=== PATIENT | male | born 1950 | race Caucasian/White ===

== ENCOUNTER 2017-11-21 15:23 | Inpatient (IN) | payer OTHER ==
[~2017-11-21] VITALS: Ht 175.3 cm; Wt 71.8 kg
[2017-11-21] MEDS ORDERED: ROCPM1 IV (18:18)
[2017-11-21] MEDS ORDERED: LACT10SO66 PO (18:18)
[2017-11-21] MEDS ORDERED: ASCO500T20 PO (18:18)
[2017-11-21] MEDS ORDERED: HYDR2TAB34 PO (18:18)
[2017-11-21] MEDS ORDERED: LOVI80 SQ (18:18)
[2017-11-21] MEDS ORDERED: NEPH PO (18:18)
[2017-11-21] MEDS ORDERED: RIVA20TA PO (18:18)
[2017-11-21] MEDS ORDERED: [UNRECOGNIZED DRUG - CODE] PO (18:18)
[2017-11-21] MEDS ORDERED: LIP40 PO (18:18)
[2017-11-21] MEDS ORDERED: ZOLP5TAB2 PO (18:18)
[2017-11-21] MEDS ORDERED: TIZA4TAB11 PO (18:18)
[2017-11-21] MEDS ORDERED: FENO48TA2 PO (18:18)
[2017-11-21] MEDS ORDERED: MIDO5TAB20 PO (18:18)
[2017-11-21 18:30] VITALS: BP_SYST 117
[2017-11-21] MEDS ORDERED: *HEPARIN PER PHARMACY XX ONE (19:00)
[2017-11-21] MEDS ORDERED: ZOLPIDEM TARTRATE 5 MG TABLET PO PRN (19:15)
[2017-11-21] MEDS ORDERED: tiZANidine HCL 4 MG TABLET PO PRN (19:15)
[2017-11-21 19:24] VITALS: BP_SYST 117
[2017-11-21 20:10] LABS: INR 1.4 (0.80-1.20); PROTHROMBIN TIME 14.8 SECS (9.5-12.5)
[2017-11-21] MEDS ORDERED: HEPARIN SODIUM,PORCINE 3000 UNITS/0.6 ML BOLUS IVP PRN (20:15)
[2017-11-21] MEDS ORDERED: HEPARIN SODIUM,PORCINE 2000 UNITS/0.4 ML BOLUS IVP PRN (20:15)
[2017-11-21] MEDS: MIDODRINE HCL 5 MG TABLET (PROAMATINE) PO SCH (21:51)
[2017-11-21] MEDS: NORMAL SALINE 5 ML DISP.SYRIN IVF SCH (21:51)
[2017-11-21] MEDS: HEPARIN 25,000 UNITS in 250 ML PREMIX IV PRN (21:53)
[2017-11-21] MEDS: HYDROmorphone 2 MG TAB PO PRN (22:42)
[2017-11-22 00:30] VITALS: BP_SYST 131
[2017-11-22 04:35] LABS: CALCIUM 8.7 mg/dL (8.4-11.0); CREATININE 2.63 mg/dL (0.55-1.30); POTASSIUM 3.4 mmol/L (3.5-5.1)
[2017-11-22 04:37] LABS: BASOPHILS # (AUTO) 0.1 K/uL (0.0-0.2); BASOPHILS % (AUTO) 1.7 % (0.0-2.0); EOSINOPHILS # (AUTO) 0.4 K/uL (0.0-0.4); EOSINOPHILS % (AUTO) 6.4 % (0.0-4.0); HEMOGLOBIN 10.7 g/dL (14.0-18.0); LYMPHOCYTES # (AUTO) 1.8 K/uL (1.0-5.5); LYMPHOCYTES % (AUTO) 28.5 % (20.5-51.5); MEAN CORPUSCULAR HEMOGLOBIN 30 pg (27-31); MEAN CORPUSCULAR HGB CONC 32 % (32-36); MEAN CORPUSCULAR VOLUME 94 fL (79.0-98.0); MONOCYTES # (AUTO) 0.5 K/uL (0.0-1.0); MONOCYTES % (AUTO) 8.5 % (1.7-9.3); NEUTROPHILS # (AUTO) 3.4 K/uL (1.8-7.7); NEUTROPHILS % (AUTO) 54.9 % (40.0-70.0); PLATELET COUNT (AUTO) 257 K/uL (130-430); RED BLOOD CELL COUNT(AUTO) 3.53 MIL/uL (4.2-6.2); RED CELL DISTRIBUTION WIDTH 15.4 % (9.0-15.0); WHITE BLOOD COUNT (AUTO) 6.2 K/uL (4.8-10.8)
[2017-11-22] MEDS: MIDODRINE HCL 5 MG TABLET (PROAMATINE) PO SCH ×3 (06:45→22:03)
[2017-11-22] MEDS: NORMAL SALINE 5 ML DISP.SYRIN IVF SCH ×3 (06:45→22:15)
[2017-11-22] MEDS: HEPARIN 25,000 UNITS in 250 ML PREMIX IV PRN ×4 (08:04→22:29)
[2017-11-22] MEDS: NEPHROVITE, (FOLIC ACID/VITAMIN B COMP W-C 1 TAB) PO SCH (08:24)
[2017-11-22] MEDS: ATORVASTATIN 20 MG TABLET PO SCH (08:24)
[2017-11-22] MEDS: FENOFIBRATE NANOCRYSTALLIZED 48 MG TABLET (TRICOR) PO SCH (08:25)
[2017-11-22] MEDS: ASCORBIC ACID 500 MG TABLET PO SCH (08:26)
[2017-11-22] MEDS: ONDANSETRON HCL 4 MG/2 ML VIAL IVP PRN ×2 (08:38→17:34)
[2017-11-22 08:48] VITALS: BP_SYST 135
[2017-11-22] MEDS: LANTHANUM CARBONATE 750 MG PO SCH (09:00)
[2017-11-22] MEDS: LACTULOSE 20 GM/30 ML UDC PO SCH (09:33)
[2017-11-22] MEDS: HYDROmorphone 2 MG TAB PO PRN ×2 (09:33→18:13)
[2017-11-22] MEDS ORDERED: ONDANSETRON HCL 4 MG/2 ML VIAL IVP PRN (11:30)
[2017-11-22] MEDS ORDERED: ACETAMINOPHEN 325 MG TABLET PO PRN (11:30)
[2017-11-22] MEDS ORDERED: MAGNESIUM SULFATE 50 ML IV PRN (11:30)
[2017-11-22] MEDS ORDERED: LORazepam 2 MG/ML VIAL IVP PRN (11:30)
[2017-11-22] MEDS ORDERED: DOCUSATE SODIUM 100 MG CAPSULE PO PRN (11:30)
[2017-11-22 13:16] VITALS: BP_SYST 116
[2017-11-22 16:48] VITALS: BP_SYST 111
[2017-11-22 20:32] VITALS: BP_SYST 123
[2017-11-22] MEDS: ZOLPIDEM TARTRATE 5 MG TABLET PO PRN (22:04)
[2017-11-22] MEDS: POTASSIUM CHLORIDE 20 MEQ TAB.PRT.SR PO PRN (22:05)
[2017-11-22] MEDS: MUPIROCIN 2% TOPICAL OINTMENT 22 GM NS PRN (22:14)
[2017-11-22 23:11] VITALS: BP_SYST 130
[2017-11-23] MEDS: MIDODRINE HCL 5 MG TABLET (PROAMATINE) PO SCH ×3 (05:13→22:22)
[2017-11-23] MEDS: NORMAL SALINE 5 ML DISP.SYRIN IVF SCH ×3 (05:15→22:33)
[2017-11-23 07:06] LABS: ALBUMIN 2.7 g/dL (3.4-4.8); CALCIUM 9.1 mg/dL (8.4-11.0); CREATININE 3.21 mg/dL (0.55-1.30); POTASSIUM 3.8 mmol/L (3.5-5.1); TOTAL BILIRUBIN 0.4 mg/dL (0.0-1.0)
[2017-11-23 07:12] LABS: BASOPHILS # (AUTO) 0.1 K/uL (0.0-0.2); BASOPHILS % (AUTO) 1.3 % (0.0-2.0); EOSINOPHILS # (AUTO) 0.5 K/uL (0.0-0.4); EOSINOPHILS % (AUTO) 6.4 % (0.0-4.0); HEMATOCRIT 32.5 % (36-54); HEMOGLOBIN 10.4 g/dL (14.0-18.0); LYMPHOCYTES # (AUTO) 1.5 K/uL (1.0-5.5); LYMPHOCYTES % (AUTO) 21.4 % (20.5-51.5); MEAN CORPUSCULAR HEMOGLOBIN 30 pg (27-31); MEAN CORPUSCULAR HGB CONC 32 % (32-36); MEAN CORPUSCULAR VOLUME 94 fL (79.0-98.0); MONOCYTES # (AUTO) 0.5 K/uL (0.0-1.0); MONOCYTES % (AUTO) 6.5 % (1.7-9.3); NEUTROPHILS # (AUTO) 4.5 K/uL (1.8-7.7); NEUTROPHILS % (AUTO) 64.4 % (40.0-70.0); PLATELET COUNT (AUTO) 290 K/uL (130-430); RED BLOOD CELL COUNT(AUTO) 3.46 MIL/uL (4.2-6.2); RED CELL DISTRIBUTION WIDTH 15.7 % (9.0-15.0); WHITE BLOOD COUNT (AUTO) 7.1 K/uL (4.8-10.8)
[2017-11-23 08:40] VITALS: BP_SYST 123
[2017-11-23] MEDS: FENOFIBRATE NANOCRYSTALLIZED 48 MG TABLET (TRICOR) PO SCH (08:56)
[2017-11-23] MEDS: ATORVASTATIN 20 MG TABLET PO SCH (08:56)
[2017-11-23] MEDS: NEPHROVITE, (FOLIC ACID/VITAMIN B COMP W-C 1 TAB) PO SCH (08:56)
[2017-11-23] MEDS: ASCORBIC ACID 500 MG TABLET PO SCH (08:56)
[2017-11-23] MEDS: LANTHANUM CARBONATE 750 MG PO SCH (08:56)
[2017-11-23] MEDS: LACTULOSE 20 GM/30 ML UDC PO SCH (08:56)
[2017-11-23] MEDS: HYDROmorphone 2 MG TAB PO PRN ×2 (09:18→22:28)
[2017-11-23] MEDS: ONDANSETRON HCL 4 MG/2 ML VIAL IVP PRN (09:19)
[2017-11-23] MEDS: HEPARIN 25,000 UNITS in 250 ML PREMIX IV PRN ×2 (10:06→17:38)
[2017-11-23 10:37] LABS: INR 1.5 (0.80-1.20); PROTHROMBIN TIME 15.6 SECS (9.5-12.5)
[2017-11-23 12:20] VITALS: BP_SYST 115
[2017-11-23] MEDS ORDERED: COMMUNICATION ORDER XX ONE (14:30)
[2017-11-23] MEDS ORDERED: HEPARIN SODIUM, PORCINE 10,000 UNITS/ 10 ML VIAL MC ONE (14:45)
[2017-11-23] MEDS: PROMETHAZINE HCL 25 MG TABLET PO PRN (14:55)
[2017-11-23 16:45] VITALS: BP_SYST 119
[2017-11-23] MEDS ORDERED: WARFARIN SODIUM 7.5 MG TABLET PO SCH (18:00)
[2017-11-23 20:00] VITALS: BP_SYST 111
[2017-11-24 00:38] VITALS: BP_SYST 111
[2017-11-24] MEDS: MIDODRINE HCL 5 MG TABLET (PROAMATINE) PO SCH ×3 (05:38→21:55)
[2017-11-24] MEDS: NORMAL SALINE 5 ML DISP.SYRIN IVF SCH ×3 (05:38→21:56)
[2017-11-24] MEDS: MUPIROCIN 2% TOPICAL OINTMENT 22 GM NS PRN (05:41)
[2017-11-24 05:52] LABS: BASOPHILS # (AUTO) 0.2 K/uL (0.0-0.2); BASOPHILS % (AUTO) 3.5 % (0.0-2.0); EOSINOPHILS # (AUTO) 0.4 K/uL (0.0-0.4); EOSINOPHILS % (AUTO) 6.2 % (0.0-4.0); HEMATOCRIT 33.8 % (36-54); HEMOGLOBIN 11.1 g/dL (14.0-18.0); LYMPHOCYTES # (AUTO) 2.2 K/uL (1.0-5.5); LYMPHOCYTES % (AUTO) 31.7 % (20.5-51.5); MEAN CORPUSCULAR HEMOGLOBIN 31 pg (27-31); MEAN CORPUSCULAR HGB CONC 33 % (32-36); MEAN CORPUSCULAR VOLUME 94 fL (79.0-98.0); MONOCYTES # (AUTO) 0.6 K/uL (0.0-1.0); MONOCYTES % (AUTO) 8.3 % (1.7-9.3); NEUTROPHILS # (AUTO) 3.6 K/uL (1.8-7.7); NEUTROPHILS % (AUTO) 50.3 % (40.0-70.0); PLATELET COUNT (AUTO) 281 K/uL (130-430); RED CELL DISTRIBUTION WIDTH 15.7 % (9.0-15.0)
[2017-11-24 06:26] LABS: CALCIUM 9.3 mg/dL (8.4-11.0); CREATININE 2.72 mg/dL (0.55-1.30); POTASSIUM 3.4 mmol/L (3.5-5.1)
[2017-11-24 06:37] LABS: INR 1.9 (0.80-1.20); PROTHROMBIN TIME 19.9 SECS (9.5-12.5)
[2017-11-24] MEDS: HYDROmorphone 2 MG TAB PO PRN ×3 (07:06→19:57)
[2017-11-24] MEDS: HEPARIN 25,000 UNITS in 250 ML PREMIX IV PRN ×2 (07:08→08:22)
[2017-11-24] MEDS: LACTULOSE 20 GM/30 ML UDC PO SCH (08:12)
[2017-11-24] MEDS: ATORVASTATIN 20 MG TABLET PO SCH (08:12)
[2017-11-24] MEDS: POTASSIUM CHLORIDE 20 MEQ TAB.PRT.SR PO PRN (08:13)
[2017-11-24] MEDS: NEPHROVITE, (FOLIC ACID/VITAMIN B COMP W-C 1 TAB) PO SCH (08:14)
[2017-11-24] MEDS: FENOFIBRATE NANOCRYSTALLIZED 48 MG TABLET (TRICOR) PO SCH (08:14)
[2017-11-24] MEDS: ASCORBIC ACID 500 MG TABLET PO SCH (08:14)
[2017-11-24] MEDS: LANTHANUM CARBONATE 750 MG PO SCH (08:14)
[2017-11-24] MEDS: PROMETHAZINE HCL 25 MG TABLET PO PRN (08:32)
[2017-11-24 08:39] VITALS: BP_SYST 96
[2017-11-24 12:29] VITALS: BP_SYST 92
[2017-11-24 16:05] VITALS: BP_SYST 111
[2017-11-24] MEDS ORDERED: WARFARIN SODIUM 4 MG TABLET PO SCH (18:00)
[2017-11-24 20:00] VITALS: BP_SYST 101
[2017-11-24] MEDS: ZOLPIDEM TARTRATE 5 MG TABLET PO PRN (21:55)
[2017-11-25] VITALS: BP_SYST 108
[2017-11-25] MEDS: MIDODRINE HCL 5 MG TABLET (PROAMATINE) PO SCH ×3 (05:11→21:54)
[2017-11-25] MEDS: NORMAL SALINE 5 ML DISP.SYRIN IVF SCH ×3 (05:12→21:54)
[2017-11-25 06:54] LABS: CALCIUM 9.1 mg/dL (8.4-11.0); CREATININE 3.5 mg/dL (0.55-1.30)
[2017-11-25 07:22] LABS: PROTHROMBIN TIME 47.7 SECS (9.5-12.5)
[2017-11-25 07:23] LABS: INR 4.6 (0.80-1.20)
[2017-11-25] MEDS: LACTULOSE 20 GM/30 ML UDC PO SCH (09:00)
[2017-11-25 09:16] VITALS: BP_SYST 118
[2017-11-25] MEDS: ATORVASTATIN 20 MG TABLET PO SCH (09:20)
[2017-11-25] MEDS: ASCORBIC ACID 500 MG TABLET PO SCH (09:20)
[2017-11-25] MEDS: NEPHROVITE, (FOLIC ACID/VITAMIN B COMP W-C 1 TAB) PO SCH (09:20)
[2017-11-25] MEDS: FENOFIBRATE NANOCRYSTALLIZED 48 MG TABLET (TRICOR) PO SCH (09:21)
[2017-11-25] MEDS: PROMETHAZINE HCL 25 MG TABLET PO PRN (09:27)
[2017-11-25 10:25] LABS: BASOPHILS # (AUTO) 0.1 K/uL (0.0-0.2); BASOPHILS % (AUTO) 1.6 % (0.0-2.0); EOSINOPHILS # (AUTO) 0.3 K/uL (0.0-0.4); EOSINOPHILS % (AUTO) 4.5 % (0.0-4.0); HEMATOCRIT 35.9 % (36-54); HEMOGLOBIN 11.4 g/dL (14.0-18.0); LYMPHOCYTES # (AUTO) 1.7 K/uL (1.0-5.5); LYMPHOCYTES % (AUTO) 25.5 % (20.5-51.5); MEAN CORPUSCULAR HEMOGLOBIN 30 pg (27-31); MEAN CORPUSCULAR HGB CONC 32 % (32-36); MEAN CORPUSCULAR VOLUME 94 fL (79.0-98.0); MONOCYTES # (AUTO) 0.6 K/uL (0.0-1.0); MONOCYTES % (AUTO) 9.5 % (1.7-9.3); NEUTROPHILS # (AUTO) 3.9 K/uL (1.8-7.7); NEUTROPHILS % (AUTO) 58.9 % (40.0-70.0); PLATELET COUNT (AUTO) 288 K/uL (130-430); RED BLOOD CELL COUNT(AUTO) 3.82 MIL/uL (4.2-6.2); RED CELL DISTRIBUTION WIDTH 15.9 % (9.0-15.0); WHITE BLOOD COUNT (AUTO) 6.6 K/uL (4.8-10.8)
[2017-11-25 13:22] VITALS: BP_SYST 113
[2017-11-25 16:58] VITALS: BP_SYST 107
[2017-11-25] MEDS: ZOLPIDEM TARTRATE 5 MG TABLET PO PRN (22:03)
[2017-11-26 00:20] VITALS: BP_SYST 112
[2017-11-26] MEDS: NORMAL SALINE 5 ML DISP.SYRIN IVF SCH ×3 (06:22→23:33)
[2017-11-26] MEDS: MIDODRINE HCL 5 MG TABLET (PROAMATINE) PO SCH ×3 (06:22→23:31)
[2017-11-26 06:26] LABS: BASOPHILS # (AUTO) 0.1 K/uL (0.0-0.2); EOSINOPHILS # (AUTO) 0.3 K/uL (0.0-0.4); HEMATOCRIT 35.8 % (36-54); LYMPHOCYTES # (AUTO) 2.1 K/uL (1.0-5.5); LYMPHOCYTES % (AUTO) 30.1 % (20.5-51.5); MONOCYTES # (AUTO) 0.7 K/uL (0.0-1.0); NEUTROPHILS # (AUTO) 3.7 K/uL (1.8-7.7); WHITE BLOOD COUNT (AUTO) 6.9 K/uL (4.8-10.8)
[2017-11-26 06:42] LABS: BASOPHILS % (AUTO) 1.4 % (0.0-2.0); HEMOGLOBIN 11.6 g/dL (14.0-18.0); MEAN CORPUSCULAR HEMOGLOBIN 30 pg (27-31); MEAN CORPUSCULAR HGB CONC 33 % (32-36); MEAN CORPUSCULAR VOLUME 94 fL (79.0-98.0); MONOCYTES % (AUTO) 9.5 % (1.7-9.3); RED BLOOD CELL COUNT(AUTO) 3.83 MIL/uL (4.2-6.2); RED CELL DISTRIBUTION WIDTH 16.2 % (9.0-15.0)
[2017-11-26 06:47] LABS: CALCIUM 9.1 mg/dL (8.4-11.0); CREATININE 3.83 mg/dL (0.55-1.30); PHOSPHORUS 4.4 mg/dL (2.7-4.5); POTASSIUM 4.4 mmol/L (3.5-5.1)
[2017-11-26 07:17] LABS: INR 6.8 (0.80-1.20); PROTHROMBIN TIME 71.1 SECS (9.5-12.5)
[2017-11-26 08:00] VITALS: BP_SYST 103
[2017-11-26] MEDS: ATORVASTATIN 20 MG TABLET PO SCH (08:33)
[2017-11-26] MEDS: NEPHROVITE, (FOLIC ACID/VITAMIN B COMP W-C 1 TAB) PO SCH (08:33)
[2017-11-26] MEDS: LACTULOSE 20 GM/30 ML UDC PO SCH (08:33)
[2017-11-26] MEDS: FENOFIBRATE NANOCRYSTALLIZED 48 MG TABLET (TRICOR) PO SCH (08:33)
[2017-11-26] MEDS: ASCORBIC ACID 500 MG TABLET PO SCH (09:00)
[2017-11-26 12:39] VITALS: BP_SYST 110
[2017-11-26 14:09] LABS: PLATELET COUNT (AUTO) 308 K/uL (130-430)
[2017-11-26 17:00] VITALS: BP_SYST 118
[2017-11-26] MEDS: PROMETHAZINE HCL 25 MG TABLET PO PRN (18:25)
[2017-11-26 20:15] VITALS: BP_SYST 104
[2017-11-26] MEDS: ZOLPIDEM TARTRATE 5 MG TABLET PO PRN (23:33)
[2017-11-27 01:20] VITALS: BP_SYST 126
[2017-11-27] MEDS: MIDODRINE HCL 5 MG TABLET (PROAMATINE) PO SCH ×2 (06:21→14:44)
[2017-11-27] MEDS: NORMAL SALINE 5 ML DISP.SYRIN IVF SCH ×2 (06:21→14:44)
[2017-11-27 06:31] LABS: BASOPHILS # (AUTO) 0.1 K/uL (0.0-0.2); EOSINOPHILS # (AUTO) 0.3 K/uL (0.0-0.4); MONOCYTES # (AUTO) 0.5 K/uL (0.0-1.0); RED CELL DISTRIBUTION WIDTH 15.5 % (9.0-15.0)
[2017-11-27 06:55] LABS: BASOPHILS % (AUTO) 2.4 % (0.0-2.0); EOSINOPHILS % (AUTO) 4.1 % (0.0-4.0); HEMATOCRIT 35.8 % (36-54); HEMOGLOBIN 11.4 g/dL (14.0-18.0); LYMPHOCYTES # (AUTO) 1.8 K/uL (1.0-5.5); LYMPHOCYTES % (AUTO) 28.9 % (20.5-51.5); MEAN CORPUSCULAR HEMOGLOBIN 30 pg (27-31); MEAN CORPUSCULAR HGB CONC 32 % (32-36); MEAN CORPUSCULAR VOLUME 94 fL (79.0-98.0); MONOCYTES % (AUTO) 8.7 % (1.7-9.3); NEUTROPHILS # (AUTO) 3.5 K/uL (1.8-7.7); NEUTROPHILS % (AUTO) 55.9 % (40.0-70.0); PLATELET COUNT (AUTO) 281 K/uL (130-430); RED BLOOD CELL COUNT(AUTO) 3.83 MIL/uL (4.2-6.2); WHITE BLOOD COUNT (AUTO) 6.2 K/uL (4.8-10.8)
[2017-11-27 07:12] LABS: CALCIUM 8.9 mg/dL (8.4-11.0); CREATININE 2.72 mg/dL (0.55-1.30); PHOSPHORUS 2.8 mg/dL (2.7-4.5); POTASSIUM 3.9 mmol/L (3.5-5.1)
[2017-11-27 08:20] VITALS: BP_SYST 105
[2017-11-27 08:24] LABS: INR 5.1 (0.80-1.20); PROTHROMBIN TIME 52.4 SECS (9.5-12.5)
[2017-11-27] MEDS: NEPHROVITE, (FOLIC ACID/VITAMIN B COMP W-C 1 TAB) PO SCH (08:38)
[2017-11-27] MEDS: ATORVASTATIN 20 MG TABLET PO SCH (08:38)
[2017-11-27] MEDS: ASCORBIC ACID 500 MG TABLET PO SCH (08:38)
[2017-11-27] MEDS: LACTULOSE 20 GM/30 ML UDC PO SCH ×2 (08:39→08:40)
[2017-11-27] MEDS: FENOFIBRATE NANOCRYSTALLIZED 48 MG TABLET (TRICOR) PO SCH (08:39)
[2017-11-27 12:30] VITALS: BP_SYST 136
[2017-11-27] MEDS ORDERED: POTA20TA83 PO (13:14)
[2017-11-27] MEDS ORDERED: PHE25 PO (13:14)
[2017-11-27] MEDS ORDERED: WARF2TAB2 PO (13:34)
[2017-11-27 15:42] VITALS: BP_SYST 123
[2017-11-27 16:30] VITALS: BP_SYST 123
== END 2017-11-27 18:35 | DRG 682 ==
LOC: SMU 18:10 → STU 18:35
PROVIDERS: ADMIT General Practice; ATTEND General Practice
PROC: 5A1D70Z Performance of Urinary Filtration, Intermittent, Less than 6 Hours Per Day (ICD-10-PCS; principal; 2017-11-23)
PROC: 5A1D70Z Performance of Urinary Filtration, Intermittent, Less than 6 Hours Per Day (ICD-10-PCS; 2017-11-26)
DX: N17.0 Acute kidney failure with tubular necrosis (principal); R53.2 Functional quadriplegia; E43 Unspecified severe protein-calorie malnutrition; I82.C11 Acute embolism and thrombosis of right internal jugular vein; I12.0 Hypertensive chronic kidney disease with stage 5 chronic kidney disease or end stage renal disease; J96.10 Chronic respiratory failure, unspecified whether with hypoxia or hypercapnia; N18.6 End stage renal disease; D63.1 Anemia in chronic kidney disease; E03.9 Hypothyroidism, unspecified; E87.6 Hypokalemia; I25.10 Atherosclerotic heart disease of native coronary artery without angina pectoris; E78.5 Hyperlipidemia, unspecified; E66.9 Obesity, unspecified; N31.9 Neuromuscular dysfunction of bladder, unspecified; G47.00 Insomnia, unspecified; Y92.89 Other specified places as the place of occurrence of the external cause; Z86.74 Personal history of sudden cardiac arrest; Z86.718 Personal history of other venous thrombosis and embolism; Z99.2 Dependence on renal dialysis; Z74.01 Bed confinement status; Z88.6 Allergy status to analgesic agent; Z88.5 Allergy status to narcotic agent; Z88.2 Allergy status to sulfonamides; Z68.23 Body mass index [BMI] 23.0-23.9, adult
CPT/HCPCS: 36415; 80048; 80053; 83036; 83735-TC; 84100-TC; 85025; 85610-TC; 85730-TC; 87081; 90935; 90937; 93970; J1644; J2405; J7030; Q0169